=== PATIENT | female | born 1995 | race Caucasian/White ===

== ENCOUNTER 2018-02-02 15:21 | Emergency (ER) | payer BC ==
[2018-02-02] MEDS: KETOROLAC 60 MG INJ IM (16:27)
[2018-02-02] MEDS: HYDROCODONE/APAP (10/325) TAB PO (17:13)
== END 2018-02-02 18:00 | disposition home or self-care (01) ==
LOC: FTE 15:21
DX: M54.5 Low back pain (principal)
CPT/HCPCS: 72100; 81025; 96372; 99284-25